=== PATIENT | male | born 1955 ===

== ENCOUNTER 2017-08-25 09:58 | Emergency (ER) | payer MEDICAID ==
[2017-08-25 12:12] VITALS: BP 139/90
--- NOTE | 2017-08-25 14:16 | UC ---
Shoulder Pain HPI - HPI Summary HPI Summary: right trapezious tightness and pain on/off for the past 2-3 months---has not slept well for over 1 month due to the pain, had similar of left shoulder that was treated with injections no know injury--no repeative stress or movement - History of Current Complaint Hx Obtained From: Patient Onset/Duration: Gradual Onset, Lasting Weeks, Still Present Timing: Constant Severity Initially: Moderate Severity Currently: Moderate Location Of Pain: Is Discrete @ - right trap Pain Intensity: 2 Pain Scale Used: 0-10 Numeric Character: Aching, Throbbing, Stiffness Aggravating Factor(s): Movement Alleviating Factor(s): Nothing Associated Signs And Symptoms: Positive: Negative Related History: Dominant Hand Right <Livia Douglas - Last Filed: 08/25/17 15:00> <Ashlie Ramirez - Last Filed: 08/26/17 06:52> - History of Current Complaint Chief Complaint: UCUpperExtremity Stated Complaint: SHOULDER AND BACK PAIN Time Seen by Provider: 08/25/17 12:44 - Allergies/Home Medications Allergies/Adverse Reactions: Allergies Allergy/AdvReac Type Severity Reaction Status Date / Time No Known Allergies Allergy Verified 08/25/17 12:00 Home Medications: Home Medications Lisinopril/HCTZ 20/12.5(NF) [Zestoretic 20/12.5(NF)] 1 tab PO DAILY 08/25/17 [ History Confirmed 08/25/17] Metoprolol Tartrate 25 mg PO BID 08/25/17 [History Confirmed 08/25/17] PMH/Surg Hx/FS Hx/Imm Hx Previously Healthy: No Cardiovascular History: Hypertension - Surgical History Surgical History: Yes Surgery Procedure, Year, and Place: ankle surgery 2016. R hand surgery 2013 - Family History Known Family History: Positive: None - Social History Occupation: Disabled Lives: With Family Alcohol Use: None Substance Use Type: None Smoking Status (MU): Light Every Day Tobacco Smoker Amount Used/How Often: 1 pack lasts pt 1 week. Have You Smoked in the Last Year: Yes <Livia Douglas - Last Filed: 08/25/17 15:00> Review of Systems Constitutional: Negative Skin: Negative Eyes: Negative ENT: Negative Respiratory: Negative Cardiovascular: Negative Gastrointestinal: Negative Genitourinary: Negative Motor: Negative Neurovascular: Negative Musculoskeletal: Myalgia - right trapezious Neurological: Negative Psychological: Negative Is Patient Immunocompromised?: No All Other Systems Reviewed And Are Negative: Yes <iLvia Douglas - Last Filed: 08/25/17 15:00> Physical Exam Triage Information Reviewed: Yes Appearance: Well-Appearing Vital Signs: Initial Vital Signs Temp 98.8 F 08/25/17 12:03 Pulse 77 08/25/17 12:03 Resp 18 08/25/17 12:03 BP 139/90 08/25/17 12:03 Pulse Ox 100 08/25/17 12:03 Vital Signs Reviewed: Yes Eye Exam: Normal Eyes: Positive: Conjunctiva Clear ENT Exam: Normal ENT: Positive: Normal ENT inspection, Hearing grossly normal, Pharynx normal. Negative: Nasal congestion, Nasal drainage, TMs normal, Tonsillar swelling, Trismus, Muffled voice, Hoarse voice, Dental tenderness, Sinus tenderness Dental Exam: Normal Neck exam: Normal Neck: Positive: Supple, Nontender, No Lymphadenopathy Respiratory Exam: Normal Respiratory: Positive: Chest non-tender, Lungs clear, Normal breath sounds, No respiratory distress, No accessory muscle use Cardiovascular Exam: Normal Cardiovascular: Positive: RRR, No Murmur, Pulses Normal, Brisk Capillary Refill Musculoskeletal Exam: Normal Musculoskeletal: Positive: Strength Intact, ROM Intact, No Edema Neurological Exam: Normal Neurological: Positive: Alert, Muscle Tone Normal Psychological Exam: Normal Skin Exam: Normal <Livia Douglas - Last Filed: 08/25/17 15:00> Vital Signs: Initial Vital Signs Temp 98.8 F 08/25/17 12:03 Pulse 77 08/25/17 12:03 Resp 18 08/25/17 12:03 BP 139/90 08/25/17 12:03 Pulse Ox 100 08/25/17 12:03 <Ashlie Ramirez - Last Filed: 08/26/17 06:52> Shoulder Course/Dx - Course Assessment/Plan: restart BP meds, pain med and muscle relaxer follow with pcp - Differential Dx/Diagnosis Provider Diagnoses: elevated blood pressure non-adherent with treatment rx, insommnia, left trapezious muscle pain <Livia Douglas - Last Filed: 08/25/17 15:00> Discharge <Livia Douglas - Last Filed: 08/25/17 15:00> <Ashlie Ramirez - Last Filed: 08/26/17 06:52> - Discharge Plan Condition: Stable Disposition: HOME Prescriptions: Cyclobenzaprine TAB* [Flexeril 10 MG TAB*] 10 mg PO TID PRN #15 tab PRN Reason: muscle pain Ibuprofen TAB* [Motrin TAB* 600 MG] 600 mg PO Q6H PRN #40 tab PRN Reason: pain Lisinopril/HCTZ 20/12.5(NF) [Zestoretic 20/12.5(NF)] 2 tab PO DAILY #28 tab Metoprolol Tartrate 25 mg PO BID #14 tablet Trazodone HCl 150 mg PO BEDTIME #15 tablet Patient Education Materials: Hypertension (ED), Muscle Spasm (ED) Referrals: [facility] [Outside] - 1 Week Miguel Gaming MD [Medical Doctor] - 1 Week Attestation Statement User Type: Provider - I was available for consult. This patient was seen by the JOHN. The patient was not presented to, seen by, or examined by me. Ray <Ashlie Ramirez - Last Filed: 08/26/17 06:52>
== END 2017-08-25 13:45 | disposition home or self-care (01) ==
LOC: UCEAST 09:58
DX: M79.622 Pain in left upper arm (principal); G47.00 Insomnia, unspecified; I10 Essential (primary) hypertension; F17.210 Nicotine dependence, cigarettes, uncomplicated
CPT/HCPCS: 99202; G0463

== ENCOUNTER 2017-09-10 10:01 | Emergency (ER) | payer MEDICAID ==
[2017-09-10 10:21] VITALS: BP 153/95
--- NOTE | 2017-09-10 11:34 | RAD ---
INDICATION: Right shoulder injury. TECHNIQUE: 4 views of the right shoulder were obtained. FINDINGS: The bones are in normal alignment. No fracture is seen. There appears to be an os acromiale present. There is mild osteoarthritic change in the acromioclavicular and glenohumeral joint spaces. IMPRESSION: MILD OSTEOARTHRITIC CHANGE.
--- NOTE | 2017-09-10 12:20 | UC ---
Shoulder Pain HPI - HPI Summary HPI Summary: 3 MONTHS OF RIGHT SHOULDER/NECK PAIN. KEEPING HIM UP AT NIGHT. 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 WAS SEEN HERE ABOUT 2 WEEKS AGO AND GIVEN IBUPROFEN AND FLEXERIL WHICH HE STATES ARE HELPING. DID NOT FOLLOW-UP WITH [facility]TH[facility] ADVISED. PT ALSO HAD HIS BP AND SLEEPING MEDS REFILLED AT THAT TIME. HAS AN APPT WITH A NEW PCP IN 3 DAYS () BUT HAS RUN OUT OF HIS MEDS. IS HERE FOR REFILLS AND ALSO FOR RECHECK OF HIS PERSISTENT SHOULDER PAIN. - History of Current Complaint Chief Complaint: UCUpperExtremity Stated Complaint: SHOULDER COMPLAINT Time Seen by Provider: 09/10/17 10:26 Hx Obtained From: Patient Onset/Duration: Gradual Onset, Lasting Weeks, Still Present Timing: Constant Severity Initially: Moderate Severity Currently: Moderate Location Of Pain: Is Discrete @ - right shoulder Pain Intensity: 6 Pain Scale Used: 0-10 Numeric Character: Sharp, Aching Aggravating Factor(s): Movement Alleviating Factor(s): Rest Associated Signs And Symptoms: Positive: Negative - Allergies/Home Medications Allergies/Adverse Reactions: Allergies Allergy/AdvReac Type Severity Reaction Status Date / Time No Known Allergies Allergy Verified 08/25/17 12:00 PMH/Surg Hx/FS Hx/Imm Hx - Additional Past Medical History Additional PMH: INSOMNIA Cardiovascular History: Hypertension - Surgical History Surgical History: Yes Surgery Procedure, Year, and Place: ankle surgery 2016. R hand surgery 2013 - Family History Known Family History: Positive: None Negative: Hypertension - Social History Alcohol Use: Weekly Substance Use Type: None Smoking Status (MU): Light Every Day Tobacco Smoker Amount Used/How Often: 1 pack lasts pt 1 week. Have You Smoked in the Last Year: Yes Review of Systems Constitutional: Negative Skin: Negative Respiratory: Negative Cardiovascular: Negative Gastrointestinal: Negative Musculoskeletal: Arthralgia, Myalgia All Other Systems Reviewed And Are Negative: Yes Physical Exam Triage Information Reviewed: Yes Appearance: Well-Appearing, No Pain Distress, Well-Nourished Vital Signs: Initial Vital Signs Temp 97.6 F 09/10/17 10:16 Pulse 100 09/10/17 10:16 Resp 20 09/10/17 10:16 BP 153/95 09/10/17 10:16 Pulse Ox 99 09/10/17 10:16 Vital Signs Reviewed: Yes Eyes: Positive: Conjunctiva Clear ENT: Positive: Hearing grossly normal Neck: Positive: Supple, No Lymphadenopathy, Other: - TTP RIGHT TRAPEZIUS MUSCLE Respiratory Exam: Normal Cardiovascular Exam: Normal Abdomen Description: Positive: Soft Musculoskeletal: Positive: ROM Intact, No Edema, Other: - TTP DIFFUSELY OVER RIGHT SHOULDER Neurological: Positive: Alert Psychological: Positive: Age Appropriate Behavior Skin: Negative: rashes Diagnostics - Radiology RIGHT SHOULDER XRAY Xray Interpretation: Positive (See Comments) - MILD OSTEOARTHRITIC CHANGE. Radiology Interpretation Completed By: Radiologist Shoulder Course/Dx - Differential Dx/Diagnosis Provider Diagnoses: RIGHT SHOULDER OSTEOARTHRITIS Discharge - Discharge Plan Condition: Stable Disposition: HOME Prescriptions: Cyclobenzaprine TAB* [Flexeril TAB*] 10 mg PO BID PRN #30 tab PRN Reason: Pain Ibuprofen TAB* [Motrin TAB* 600 MG] 1 tab PO Q6H PRN #30 tab PRN Reason: Pain Lisinopril/HCTZ 20/12.5(NF) [Zestoretic 20/12.5(NF)] 2 tab PO DAILY #30 tab Metoprolol Tartrate 50 mg PO DAILY #14 tablet Trazodone HCl 150 mg PO QPM PRN #15 tablet PRN Reason: Insomnia Patient Education Materials: Osteoarthritis (ED), Hypertension (ED), Insomnia ( ED), Shoulder Pain (ED) Referrals: Miguel Gaming MD [Medical Doctor] - Joe Sanford MD [Medical Doctor] - (KEEP YOUR APPT 09/13/17 AT 3:30PM) Additional Instructions: SHOULDER XRAY TODAY SHOWED MILD OSTEOARTHRITIC CHANGE. PHYSICAL THERAPY REFERRAL PROVIDED. CALL [facility]TH[facility] TO SCHEDULE A FOLLOW-UP APPT IF YOUR SYMPTOMS ARE NOT IMPROVING WITH IBUPROFEN, FLEXERIL AND DEDICATED TRIAL OF PHYSICAL THERAPY. BLOOD PRESSURE AND AND SLEEPING MEDS REFILLED TODAY FOR ANOTHER 2 WEEKS. BE SURE TO KEEP YOUR PCP APPT ON WEDNESDAY. ANY FURTHER REFILLS OF THESE CHRONIC MEDS WILL NEED TO COME FROM YOUR PCP OFFICE.
== END 2017-09-10 11:55 | disposition home or self-care (01) ==
LOC: UCEAST 10:01
DX: M19.011 Primary osteoarthritis, right shoulder (principal); G47.00 Insomnia, unspecified; I10 Essential (primary) hypertension; F17.210 Nicotine dependence, cigarettes, uncomplicated
CPT/HCPCS: 99213; G0463